=== PATIENT | female | born 1970 | race Caucasian/White ===

== ENCOUNTER 2019-03-12 17:37 | Observation (INO) ==
[2019-03-12] MEDS ORDERED: MoRPHine SULFATE 4 MG/ML 1 ML CARP\\VIAL IV STA (17:51)
[2019-03-12 18:25] LABS: Prothrombin Time 10.6 Seconds (9.0-12.0)
[2019-03-12 18:35] LABS: Alanine Aminotransferase 23 U/L (12-78); Albumin Level 3.5 gm/dl (3.4-5.0); Aspartate Aminotransferase 25 U/L (15-37); BUN Creatinine Ratio 9.7 (10-20); Blood Urea Nitrogen 7 mg/dl (7-18); Calcium 9.4 mg/dl (8.5-10.1); Carbon Dioxide 26 mmol/L (21-32); Chloride 106 mmol/L (98-107); Creatinine Clr Calc Pharmacy 99.3 ml/min; Est GFR (African American) 118.5; Est GFR (Non-African American) 102.2; Glucose 75 mg/dl (70-99); Potassium 3.4 mmol/L (3.5-5.1); Sodium 140 mmol/L (136-145)
--- NOTE | 2019-03-12 18:36 | XRay Report ---
XR chest 1V portable CLINICAL HISTORY: Atypical chest pain COMPARISON STUDY: No previous studies for comparison. FINDINGS: The cardiac and mediastinal contours are normal. There is no evidence of focal pulmonary co nsolidation. There is no evidence of failure. No pleural effusions are visualized.[There is an equivo elba tiny hiatal hernia versus left medial basilar atelectasis/scarring. No pneumothorax is visualized . IMPRESSION: No active disease in the chest. Electronically signed by: Vin Silverman M.D. 03/12/2019 6:35 PM
[2019-03-12 18:39] LABS: Albumin Globulin Ratio 0.8 (0.9-2); Alkaline Phosphatase 125 U/L (45-117); Bilirubin,Total 0.4 mg/dl (0.2-1); Globulin 4.4 gm/dl (2.5-4.0); Total Protein 7.9 gm/dl (6.4-8.2); Troponin I < 0.015 ng/ml (0-0.045)
[2019-03-12 18:40] LABS: Anisocytosis Present; Basophils # (auto) 0.06 K/uL (0-0.2); Basophils % (auto) 0.8 %; Eosinophils # (auto) 0.29 K/uL (0-0.5); Eosinophils % (auto) 3.8 %; Hematocrit (blood only) 30.5 % (37-47); Hemoglobin 8.8 g/dL (12.0-16.0); Hypochromasia Present; Immature Granulocytes # (auto) 0.01 K/uL (0.00-0.02); Immature Granulocytes % (auto) 0.1 %; Lymphocytes % (auto) 47.4 %; Mean Corpuscular Hgb Conc 28.9 g/dL (32-36); Mean Corpuscular Volume 66.3 fL (80-100); Microcytosis Present; Monocytes # (auto) 0.48 K/uL (0.11-0.59); Monocytes % (auto) 6.3 %; Neutrophils # (auto) 3.16 K/uL (1.4-6.5); Neutrophils % (auto) 41.6 %; Platelet Count 189 K/uL (130-400); RDW Coefficient of Variation 20.6 % (11.5-14.5); RDW Standard Deviation 49.1 fL (36.4-46.3); Schistocytes Occasional
[2019-03-12] MEDS ORDERED: OPTIRAY 320 125ml IV PRN (19:07)
--- NOTE | 2019-03-12 19:28 | CT Scan Report ---
CT OF THE CHEST WITH IV CONTRAST CLINICAL HISTORY: CP, jaw pain, back pain COMPARISON STUDY: No previous studies for comparison. TECHNIQUE: Initially noncontrast images were obtained through the chest. Following the IV administrat ion of 119 mL of Optiray-320, CT of the thorax was performed from the thoracic inlet to the lung base s. Images are reviewed in the axial, sagittal, and coronal planes. IV contrast was administered witho ut complication. A dose lowering technique was utilized adhering to the principles of ALARA. MIP zabrina ges were acquired. CT DOSE: 725.73 mGy.cm FINDINGS: Thyroid: Imaged portions of the thyroid gland are normal in appearance. Thoracic aorta: Noncontrast images reveal no evidence of acute thoracic aorta hematoma. There is no e vidence of thoracic aortic aneurysm or dissection. Pulmonary vasculature: The pulmonary trunk is norm al in caliber. There are no central filling defects identified to suggest pulmonary embolus. Note allyson t this examination was not protocoled for the evaluation of pulmonary emboli. HEART: The heart is normal in size and configuration, without pericardial effusion. Lungs and pleural spaces: There are no pleural effusions. There is no pneumothorax. There is no focal pulmonary consolidation. There are a few scattered tiny micronodules. Mediastinum: There is no mediastinal lymphadenopathy. Blanca: There is no evidence of pathologic hilar lymphadenopathy Axilla: There is no evidence of pathologic axillary lymphadenopathy Upper abdomen: There is a hiatal hernia. There are surgical changes involving the stomach. Skeletal structures: There are degenerative changes present within the spine with calcified disc prot rusions at the T8-9 and T6-7 levels IMPRESSION: 1. No evidence of thoracic aortic aneurysm or dissection 2. No evidence of pulmonary embolism 3. No evidence of focal pulmonary consolidation Electronically signed by: Vin Silverman M.D. 03/12/2019 7:27 PM
[2019-03-12] MEDS ORDERED: NITROGLYCERIN SL 0.4 MG/TAB TAB SL STA (20:02)
[2019-03-12] MEDS ORDERED: NITROGLYCERIN 2% OINTMENT 30GM TUBE EXT STA (21:49)
--- NOTE | 2019-03-12 22:19 | History & Physical Report ---
Date of Service March 12, 2019 Assessment & Plan (1) Chest pain: 49-year-old female was admitted on 12 March 2019 for chest pain. Chest pain: Acute onset late afternoon of admission, similar to remote anginal symptoms. Resolved with nitroglycerin and morphine, then began to return. - On arrival to ED, afebrile, not tachycardic, BP 145/88, normal room SpO2. TnI at 1751 was negative. EKG NSR with T wave inversion in III and PVCs. CTA chest no evidence of PE or consolidation. - In ED, treated with morphine and nitroglycerin with interval resolution of pain, but is beginning to return. - We will place on nitroglycerin paste and morphine as needed. Serial EKGs and troponins overnight. Consulted cardiology for evaluation tomorrow. Anemia: Admit Hb 8.8, MCV 66. Patient notes history of same, unknown cause, but gives herself weekly iron injections (last dose 24Jun). Recheck CBC in the morning. Hypokalemia: Admit K 3.4. Will provide p.o. replacement, recheck in a.m. Ongoing medical issues (all per patient's account): - Congestive heart failure, hyperlipidemia: Unclear details of severity or type. At home with on aspirin, diltiazem, metoprolol, Crestor, and Imdur. Continue here. -Atrial fibrillation: At home as on apixaban. Continue here. - Bipolar, anxiety/depression: At home is on bupropion, Lexapro, buspirone. Continue here. - Lupus: Last flare around August 2018. - CVA: Apparently first episode in 2013 without symptoms. Second 2018 with left-sided weakness and aphasia. Nearly totally resolved after speech and physical therapy. - Hypothyroidism: At home is on Synthroid. Continue here. - Insomnia: At home is on mirtazapine. Continue here. - Reported history of diabetes: Apparently off of insulin for past 9 months since gastric sleeve surgery in September 2017. Is on pantoprazole. Code status: Full code. Diet: Heart healthy. DVT prophy: On eliquis. PT/OT: Deferred. Disbo[facility] (2) Anemia: (3) Hypokalemia: (4) Congestive heart failure: (5) Hyperlipidemia: (6) Atrial fibrillation: (7) Bipolar disorder: (8) Anxiety: (9) Depression: (10) Lupus: (11) History of CVA (cerebrovascular accident): (12) Hypothyroidism: (13) Insomnia: History of Present Illness Primary Care Provider: NO PCP 49-year-old female arrives via EMS for chest pain. She states around 5 PM [facility] she had the acute onset of nausea, vomiting x2, and a central "clenching" chest pain that radiated towards her jaw and into her upper back. She called 911 and gave herself 3 nitroglycerin which improved her pain from a 10/10 to a 7/10. By EMS, she was given aspirin and on arrival was given further nitroglycerin and morphine. Only noted prodromal symptom was a feeling of decreased energy over the past 3 days. At present during this interview, patient says that it feels like her chest pain is beginning to return. She says the last time this happened was about 7 months ago and at that time Nitropaste seem to help more. She notes a history of angina for the past approximately 1.5 years and says that this pain feels similar to that. She is followed by cardiology back home in [place]. She pres ently feels what appears to be PVCs on the monitor. She says she has some mild shortness of breath initially but denies any at present. She says she is quite hungry and is enjoying the sandwich she got in the ED. No longer any nausea. As background, patient states she has a history of angina as described above. No known source. Says she underwent a chemical stress test and catheterization in the summer 2017 and was noted to have minimal blockage. She also says she has a history of congestive heart failure, has had echocardiograms, but is unsure of the results. Furthermore, notes history of A. fib well controlled on medication as well as on apixaban. Status post CVA in 2013 without noted deficits but then a second CVA in 2018 with some left-sided weakness and mild aphasia, since greatly resolved. Diagnosed with lupus last year. Concurrent anxiety and depression. Hypothyroidism. Says she underwent a gastric sleeve surgery in September 2017, has since had 120 pound weight loss, and is off of insulin/metformin. She notes a history of anemia, no known source, but gives herself shots of iron weekly (last dose 24Jun). She is presently in [place] visiting her at [facility] and was on track to take a bus to [place], then return to [place] this coming Friday. Allergies Allergy/AdvReac Type Severity Reaction Status Date / Time Penicillins Allergy Severe THROAT Verified 03/12/19 18:05 CLOSES, HIVES adhesive Allergy Intermediate SKIN Verified 03/12/19 18:05 BLISTERS Home Medications Home Medications Medication Instructions Recorded Confirmed Type apixaban [Eliquis] 5 mg PO BID 03/12/19 03/12/19 History aspirin [Aspir-81] 81 mg PO QAM 03/12/19 03/12/19 History bupropion HCl 75 mg PO BID 03/12/19 03/12/19 History buspirone 15 mg PO BID 03/12/19 03/12/19 History diltiazem HCl [Cardizem] 120 mg PO BID 03/12/19 03/12/19 History escitalopram oxalate [Lexapro] 20 mg PO QAM 03/12/19 03/12/19 History hydromorphone [Dilaudid] 4 mg PO DIRECTED PRN 03/12/19 03/12/19 History isosorbide mononitrate 30 mg PO BID 03/12/19 03/12/19 History levothyroxine 137 mcg PO DAILYBB 03/12/19 03/12/19 History metoprolol tartrate 25 mg PO BID 03/12/19 03/12/19 History mirtazapine 45 mg PO HS 03/12/19 03/12/19 History nitroglycerin [Nitrostat] 0.4 mg SUBLINGUAL DIRECTED PRN 03/12/19 03/12/19 History pantoprazole 40 mg PO BID 03/12/19 03/12/19 History rosuvastatin [Crestor] 20 mg PO HS 03/12/19 03/12/19 History Past Med/Surg History Medical History CHF (congestive heart failure) CVA (cerebral vascular accident) Lupus Social History Preferred Language: [employer] Required: No Beliefs That Will Affect Care: None Current Living Situation: Alone Other Information That Helps Us Care for You: No Feels Safe at Home: Yes Safety Concerns: Feels Safe At This Time Smoking Status: Former smoker Do You Dip or Chew Tobacco: No Second Hand Exposure: No Tobacco Cessation Education Requested by Patient: No Hx Alcohol Use: No Hx Substance Use: No Review of Systems Review of Systems: Constitutional: Denies fevers, chills, focal weakness Eyes: Denies any visual loss or diplopia ENT: Denies any ear/nose/throat pain or difficulty speaking or swallowing Respiratory: Denies any dyspnea, cough, hemoptysis Cardiovascular: Positive chest pain. Denies edema. Gastrointestinal: Denies any abdominal pain. Positive nausea vomiting, denies diarrhea. Musculoskeletal: Denies any acute extremity pains, myalgias, or focal weakness Skin: Denies any known acute rashes or lesions Neuro: Denies any headache, acute focal weakness or numbness, or difficulties with speech or swallow. Psych: Denies any recent exacerbation of depression or anxiety Physical Exam Physical Exam: GENERAL: Awake, alert, well-appearing, in no acute distress. Eating a sandwich. HENT: Normocephalic, atraumatic. Oropharynx unremarkable. EYES: Normal conjunctiva. Sclera non-icteric. NECK: Inspection normal. Non-tender. Supple and full ROM. No nuchal rigidity. CARDIAC: +S1S2 RRR with occasional PVCs on monitor, no murmurs. RESPIRATORY: Clear to auscultation. No wheezes or rales. Normal respiratory effort. GI: +BS, soft, non-distended. No tenderness to palpation. No rebound or guarding. EXTREMITIES: No pedal edema or calf tenderness. Moving all extremities naturally and easily. Small abrasion to her right patella. NEURO: No gross neuro deficits. Results & Data Vital Signs (Past 12 Hours) Vital Signs Temp Pulse Pulse Resp BP BP Pulse Ox 03/12/19 21:42 18 03/12/19 21:31 78 23 125/81 100 03/12/19 21:30 75 18 85 L 03/12/19 21:20 79 19 93 03/12/19 21:10 76 17 100 03/12/19 21:01 79 20 99 03/12/19 21:00 75 15 127/83 03/12/19 20:50 78 19 03/12/19 20:40 78 18 03/12/19 20:30 75 18 130/97 100 03/12/19 20:20 87 19 100 03/12/19 20:10 85 20 03/12/19 20:01 74 26 H 112/97 100 03/12/19 20:00 71 25 H 03/12/19 19:59 73 24 145/88 H 100 03/12/19 19:58 71 15 145/88 H 100 03/12/19 19:50 73 23 100 03/12/19 19:40 78 18 93 03/12/19 19:31 81 21 100 03/12/19 19:30 79 22 111/87 100 03/12/19 19:21 75 20 118/65 98 03/12/19 19:20 82 24 98 03/12/19 19:17 99 H 19 03/12/19 18:50 86 25 H 97 03/12/19 18:40 88 20 98 03/12/19 18:30 78 24 100 03/12/19 18:20 81 18 100 03/12/19 18:10 82 18 100 03/12/19 18:03 90 13 99 03/12/19 17:50 85 26 H 97 03/12/19 17:47 86 21 100 03/12/19 17:45 36.9 C 88 17 93 Laboratory Results 03/12/19 03/12/19 03/12/19 Range/Units 17:51 17:51 17:51 WBC 7.60 (4.8-10.8) K/uL RBC 4.60 (4.2-5.4) M/uL Hgb 8.8 L (12.0-16.0) g/dL Hct 30.5 L (37-47) % MCV 66.3 L (80-100) fL MCH 19.1 L (25-34) pg MCHC 28.9 L (32-36) g/dL RDW Std Deviation 49.1 H (36.4-46.3) fL RDW Coeff of Bebo 20.6 H (11.5-14.5) % Plt Count 189 (130-400) K/uL Immature Gran % (Auto) 0.1 % Neut % (Auto) 41.6 % Lymph % (Auto) 47.4 % [place] % (Auto) 6.3 % Eos % (Auto) 3.8 % Baso % (Auto) 0.8 % Immature Gran # (Auto) 0.01 (0.00-0.02) K/uL Neut # (Auto) 3.16 (1.4-6.5) K/uL Lymph # (Auto) 3.60 H (1.2-3.4) K/uL [place] # (Auto) 0.48 (0.11-0.59) K/uL Eos # (Auto) 0.29 (0-0.5) K/uL Baso # (Auto) 0.06 (0-0.2) K/uL Hypochromasia Present Anisocytosis Present Microcytosis Present Schistocytes Occasional PT 10.6 (9.0-12.0) Seconds INR 1.0 (0.9-1.1) Sodium 140 (136-145) mmol/L Potassium 3.4 L (3.5-5.1) mmol/L Chloride 106 (98-107) mmol/L Carbon Dioxide 26 (21-32) mmol/L Anion Gap 8.0 (3-11) BUN 7 (7-18) mg/dl Creatinine 0.69 (0.6-1.2) mg/dl Est Cr Clr Drug Dosing 99.3 ml/min Est GFR ( Amer) 118.5 Est GFR (Non-Af Amer) 102.2 BUN/Creatinine Ratio 9.7 L (10-20) Glucose 75 (70-99) mg/dl Calcium 9.4 (8.5-10.1) mg/dl Total Bilirubin 0.4 (0.2-1) mg/dl AST 25 (15-37) U/L ALT 23 (12-78) U/L Alkaline Phosphatase 125 H (45-117) U/L Troponin I < 0.015 (0-0.045) ng/ml Total Protein 7.9 (6.4-8.2) gm/dl Albumin 3.5 (3.4-5.0) gm/dl Globulin 4.4 H (2.5-4.0) gm/dl Albumin/Globulin Ratio 0.8 L (0.9-2) Lipase 176 (73-393) U/L Medications Administered Ioversol (Optiray 320 125ml) 119 ml IV ONCE PRN PRN Reason: Interaction Checking Stop: 03/16/19 19:06 Last Admin: 03/12/19 19:08 Dose: 119 ml Documented by: [id number] Discontinued Medications Morphine Sulfate (Morphine Sulfate) 4 mg IV NOW STA Stop: 03/12/19 17:52 Last Admin: 03/12/19 18:16 Dose: 4 mg Documented by: [id number] Nitroglycerin (Nitrostat) 0.4 mg SL NOW STA Stop: 03/12/19 20:03 Last Admin: 03/12/19 20:50 Dose: 0.4 mg Documented by: [id number] Nitroglycerin (Nitro-Bid 2%) 0.5 inch EXT NOW STA Stop: 03/12/19 21:50 Last Admin: 03/12/19 22:08 Dose: 0.5 inch Documented by: [id number] Code Status & VTE Plan Code Status Full code VTE Prophylaxis Plan VTE Prophylaxis will be ordered: Yes Supervising Physician Co-Signing Physician Notes Attending addendum: I have physically seen this patient, have supervised the medical residents activities, and agree with the H&P unless as otherwise noted. Assessment and Plan: Chest pain/acute fibrillation/CAD/angina/CHF-- The patient will be admitted to telemetry for serial cardiac enzymes, serial EKG's, cardiac rhythm monitoring and a 2-D echocardiogram with Dopplers. Continue apixaban, aspirin, diltiazem, isosorbide mononitrate and metoprolol with hold parameters. Nitropaste added. Reportedly underwent catheterization August 2018 which was relatively normal. Question possibility of coronary artery vasospasm. Consult cardiology. Anxiety-continue bupropion, buspirone, Lexapro and mirtazapine. Remainder of orders and notations as noted. PG Care Time/CCT Total # of Minutes Spent Total Time Spent with Patient: Total time spent is greater than 50% in coordination of care (as documented) at patient's floor/unit and/or counseling patient: Resident Activity Tracking Resident Involvement: Resident Care Provided Care Provided: Adult Hospital Medicine (1) Chest pain Chest pain type: unspecified Qualified Code(s): R07.9 - Chest pain, unspecified
[2019-03-12] MEDS ORDERED: ACETAMINOPHEN 325 MG TAB PO PRN (22:43)
[2019-03-12] MEDS ORDERED: ONDANSETRON INJ 2 MG/ML 2 ML VIAL IV PRN (22:43)
[2019-03-12] MEDS ORDERED: POTASSIUM CHLORIDE 20 MEQ TABCR PO ONE (22:43)
[2019-03-12] MEDS ORDERED: NITROGLYCERIN SL 0.4 MG/TAB TAB SL PRN (22:43)
[2019-03-12] MEDS: MoRPHine SULFATE 4 MG/ML 1 ML CARP\\VIAL IV PRN (23:05)
--- NOTE | 2019-03-12 23:56 | Emergency Department Note ---
Entered by Jovanna Bingham acting as a scribe for History of Present Illness General Chief complaint: Chest Pain Source: patient History of Present Illness Provider complaint: chest pain Onset (ago): minute(s) 30 Location: chest Radiation: back (upper) and other (jaw) Severity: similar to prior episodes (of angina) Pain Consistency: + other (episode) Relieved By: + medication (Nitroglycerin) The patient is a 49 year old female who presents to the ED with complaints of an episode of chest pain that began 30 minutes ago. That patient states that the pain started while she was waiting for the bus. The patient states that her pain radiates into her jaw and upper back. The patient says that the pain made her feel dizzy and nauseas which caused her to vomit twice prior to arrival. The patient notes that she took 3 doses of Nitroglycerin 5 minutes apart which took her pain from a 10/10 to a 7/10. The patient notes that she a history of CHF, Afib and angina. The patient states that this pain feels similar to her angina. Home Medications Home Medications Medication Instructions Recorded Confirmed Type apixaban [Eliquis] 5 mg PO BID 03/12/19 03/12/19 History aspirin [Aspir-81] 81 mg PO QAM 03/12/19 03/12/19 History bupropion HCl 75 mg PO BID 03/12/19 03/12/19 History buspirone 15 mg PO BID 03/12/19 03/12/19 History diltiazem HCl [Cardizem] 120 mg PO BID 03/12/19 03/12/19 History escitalopram oxalate [Lexapro] 20 mg PO QAM 03/12/19 03/12/19 History hydromorphone [Dilaudid] 4 mg PO DIRECTED PRN 03/12/19 03/12/19 History isosorbide mononitrate 30 mg PO BID 03/12/19 03/12/19 History levothyroxine 137 mcg PO DAILYBB 03/12/19 03/12/19 History metoprolol tartrate 25 mg PO BID 03/12/19 03/12/19 History mirtazapine 45 mg PO HS 03/12/19 03/12/19 History nitroglycerin [Nitrostat] 0.4 mg SUBLINGUAL DIRECTED PRN 03/12/19 03/12/19 History pantoprazole 40 mg PO BID 03/12/19 03/12/19 History rosuvastatin [Crestor] 20 mg PO HS 03/12/19 03/12/19 History Allergies Allergy/AdvReac Type Severity Reaction Status Date / Time Penicillins Allergy Severe THROAT Verified 03/12/19 18:05 CLOSES, HIVES adhesive Allergy Intermediate SKIN Verified 03/12/19 18:05 BLISTERS Past Med/Surg History Medical History CHF (congestive heart failure) CVA (cerebral vascular accident) Lupus Social History Preferred Language: Finnish Appeals And Generalist Clerk Required: No Beliefs That Will Affect Care: None Current Living Situation: Alone Other Information That Helps Us Care for You: No Feels Safe at Home: Yes Safety Concerns: Feels Safe At This Time Smoking Status: Former smoker Do You Dip or Chew Tobacco: No Second Hand Exposure: No Tobacco Cessation Education Requested by Patient: No Hx Alcohol Use: No Hx Substance Use: No Review of Systems See HPI for pertinent positives & negatives. and A total of 10 systems reviewed and were otherwise negative Physical Exam Vital Signs Vital Signs - 24 hr 03/12/19 17:45 03/12/19 17:47 03/12/19 17:50 Temperature 36.9 C Temperature Source Oral Sepsis Recent Fever Within 48 Hours No Sepsis Action Taken by Nursing No Action Required Pulse Rate 88 86 85 Pulse Rate [Apical] Pulse Rate from SpO2 Sensor 74 79 Pulse Rhythm Irregular Pulse Strength Normal Respiratory Rate 17 21 26 H Respiratory Effort / Characteristics Non-Labored Respiratory Depth Normal Respiratory Pattern Regular Blood Pressure Blood Pressure [Right Arm] Blood Pressure Mean Blood Pressure Mean [Right Arm] Blood Pressure Position Lying Blood Pressure Position [Right Arm] Pulse Oximetry 93 100 97 Oxygen Delivery Method Room Air 03/12/19 18:03 03/12/19 18:10 03/12/19 18:20 Temperature Temperature Source Sepsis Recent Fever Within 48 Hours Sepsis Action Taken by Nursing Pulse Rate 90 82 81 Pulse Rate [Apical] Pulse Rate from SpO2 Sensor 83 82 81 Pulse Rhythm Pulse Strength Respiratory Rate 13 18 18 Respiratory Effort / Characteristics Respiratory Depth Respiratory Pattern Blood Pressure Blood Pressure [Right Arm] Blood Pressure Mean Blood Pressure Mean [Right Arm] Blood Pressure Position Blood Pressure Position [Right Arm] Pulse Oximetry 99 100 100 Oxygen Delivery Method 03/12/19 18:30 03/12/19 18:40 03/12/19 18:50 Temperature Temperature Source Sepsis Recent Fever Within 48 Hours Sepsis Action Taken by Nursing Pulse Rate 78 88 86 Pulse Rate [Apical] Pulse Rate from SpO2 Sensor 70 79 84 Pulse Rhythm Pulse Strength Respiratory Rate 24 20 25 H Respiratory Effort / Characteristics Respiratory Depth Respiratory Pattern Blood Pressure Blood Pressure [Right Arm] Blood Pressure Mean Blood Pressure Mean [Right Arm] Blood Pressure Position Blood Pressure Position [Right Arm] Pulse Oximetry 100 98 97 Oxygen Delivery Method 03/12/19 19:17 03/12/19 19:20 03/12/19 19:21 Temperature Temperature Source Sepsis Recent Fever Within 48 Hours Sepsis Action Taken by Nursing Pulse Rate 99 H 82 75 Pulse Rate [Apical] Pulse Rate from SpO2 Sensor 82 79 Pulse Rhythm Pulse Strength Respiratory Rate 19 24 20 Respiratory Effort / Characteristics Respiratory Depth Respiratory Pattern Blood Pressure 118/65 Blood Pressure [Right Arm] Blood Pressure Mean 82 Blood Pressure Mean [Right Arm] Blood Pressure Position Blood Pressure Position [Right Arm] Pulse Oximetry 98 98 Oxygen Delivery Method 03/12/19 19:30 03/12/19 19:31 03/12/19 19:40 Temperature Temperature Source Sepsis Recent Fever Within 48 Hours Sepsis Action Taken by Nursing Pulse Rate 79 81 78 Pulse Rate [Apical] Pulse Rate from SpO2 Sensor 77 82 74 Pulse Rhythm Pulse Strength Respiratory Rate 22 21 18 Respiratory Effort / Characteristics Respiratory Depth Respiratory Pattern Blood Pressure 111/87 Blood Pressure [Right Arm] Blood Pressure Mean 95 Blood Pressure Mean [Right Arm] Blood Pressure Position Blood Pressure Position [Right Arm] Pulse Oximetry 100 100 93 Oxygen Delivery Method 03/12/19 19:50 03/12/19 19:58 03/12/19 19:59 Temperature Temperature Source Sepsis Recent Fever Within 48 Hours Sepsis Action Taken by Nursing Pulse Rate 73 73 Pulse Rate [Apical] 71 Pulse Rate from SpO2 Sensor 70 71 Pulse Rhythm Pulse Strength Respiratory Rate 23 15 24 Respiratory Effort / Characteristics Respiratory Depth Respiratory Pattern Blood Pressure 145/88 H Blood Pressure [Right Arm] 145/88 H Blood Pressure Mean 107 Blood Pressure Mean [Right Arm] 107 Blood Pressure Position Blood Pressure Position [Right Arm] Lying Pulse Oximetry 100 100 100 Oxygen Delivery Method Room Air 03/12/19 20:00 03/12/19 20:01 03/12/19 20:10 Temperature Temperature Source Sepsis Recent Fever Within 48 Hours Sepsis Action Taken by Nursing Pulse Rate 71 74 85 Pulse Rate [Apical] Pulse Rate from SpO2 Sensor 73 Pulse Rhythm Pulse Strength Respiratory Rate 25 H 26 H 20 Respiratory Effort / Characteristics Respiratory Depth Respiratory Pattern Blood Pressure 112/97 Blood Pressure [Right Arm] Blood Pressure Mean 102 Blood Pressure Mean [Right Arm] Blood Pressure Position Blood Pressure Position [Right Arm] Pulse Oximetry 100 Oxygen Delivery Method 03/12/19 20:20 03/12/19 20:30 03/12/19 20:40 Temperature Temperature Source Sepsis Recent Fever Within 48 Hours Sepsis Action Taken by Nursing Pulse Rate 87 75 78 Pulse Rate [Apical] Pulse Rate from SpO2 Sensor 63 64 Pulse Rhythm Pulse Strength Respiratory Rate 19 18 18 Respiratory Effort / Characteristics Respiratory Depth Respiratory Pattern Blood Pressure 130/97 Blood Pressure [Right Arm] Blood Pressure Mean 108 Blood Pressure Mean [Right Arm] Blood Pressure Position Blood Pressure Position [Right Arm] Pulse Oximetry 100 100 Oxygen Delivery Method 03/12/19 20:50 03/12/19 21:00 03/12/19 21:01 Temperature Temperature Source Sepsis Recent Fever Within 48 Hours Sepsis Action Taken by Nursing Pulse Rate 78 75 79 Pulse Rate [Apical] Pulse Rate from SpO2 Sensor 71 Pulse Rhythm Pulse Strength Respiratory Rate 19 15 20 Respiratory Effort / Characteristics Respiratory Depth Respiratory Pattern Blood Pressure 127/83 Blood Pressure [Right Arm] Blood Pressure Mean 97 Blood Pressure Mean [Right Arm] Blood Pressure Position Blood Pressure Position [Right Arm] Pulse Oximetry 99 Oxygen Delivery Method 03/12/19 21:10 03/12/19 21:20 03/12/19 21:30 Temperature Temperature Source Sepsis Recent Fever Within 48 Hours Sepsis Action Taken by Nursing Pulse Rate 76 79 75 Pulse Rate [Apical] Pulse Rate from SpO2 Sensor 71 81 67 Pulse Rhythm Pulse Strength Respiratory Rate 17 19 18 Respiratory Effort / Characteristics Respiratory Depth Respiratory Pattern Blood Pressure Blood Pressure [Right Arm] Blood Pressure Mean Blood Pressure Mean [Right Arm] Blood Pressure Position Blood Pressure Position [Right Arm] Pulse Oximetry 100 93 85 L Oxygen Delivery Method 03/12/19 21:31 03/12/19 21:42 03/12/19 21:50 Temperature Temperature Source Sepsis Recent Fever Within 48 Hours Sepsis Action Taken by Nursing Pulse Rate 78 76 Pulse Rate [Apical] Pulse Rate from SpO2 Sensor 74 70 Pulse Rhythm Pulse Strength Respiratory Rate 23 18 16 Respiratory Effort / Characteristics Respiratory Depth Respiratory Pattern Blood Pressure 125/81 Blood Pressure [Right Arm] Blood Pressure Mean 95 Blood Pressure Mean [Right Arm] Blood Pressure Position Blood Pressure Position [Right Arm] Pulse Oximetry 100 100 Oxygen Delivery Method 03/12/19 22:00 Temperature Temperature Source Sepsis Recent Fever Within 48 Hours Sepsis Action Taken by Nursing Pulse Rate 75 Pulse Rate [Apical] Pulse Rate from SpO2 Sensor 71 Pulse Rhythm Pulse Strength Respiratory Rate 16 Respiratory Effort / Characteristics Respiratory Depth Respiratory Pattern Blood Pressure Blood Pressure [Right Arm] Blood Pressure Mean Blood Pressure Mean [Right Arm] Blood Pressure Position Blood Pressure Position [Right Arm] Pulse Oximetry 100 Oxygen Delivery Method GENERAL: Awake, alert, well-appearing, in no distress HENT: Normocephalic, atraumatic. EYES: Normal conjunctiva. Sclera non-icteric. NECK: Supple. No nuchal rigidity. RESPIRATORY: Clear to auscultation. No wheezes. Normal respiratory effort. CARDIAC: Normal rate. Normal rhythm. Extremities warm and well perfused. GI: Soft, non-distended. No tenderness to palpation. No rebound or guarding. No masses. RECTAL: Deferred. MUSCULOSKELETAL: Atraumatic. Chest examination reveals no tenderness. LOWER EXTREMITIES: Calves are equal size bilaterally and non-tender. No edema. Right lower extremity is in a boot. NEURO: Normal sensorium. No sensory or motor deficits noted. No facial droop. SKIN: Warm and dry. No rash or jaundice noted. Course 174: Past medical records reviewed. The patient was evaluated in room B12. A complete history and physical exam was performed. 2004: [facility] He will evaluate the patient for further management. Consultations Consultation #1: I discussed the patient's case with Dr. Phoenix [facility] Hospitalist. He will evaluate the patient for further management. Time: 20:04 Administered Medications Morphine Sulfate (Morphine Sulfate) 4 mg IV Q2H PRN PRN Reason: Chest Pain Stop: 03/26/19 22:42 Last Admin: 03/12/19 23:05 Dose: 4 mg Documented by: [id number] Discontinued Medications Ioversol (Optiray 320 125ml) 119 ml IV ONCE PRN PRN Reason: Interaction Checking Stop: 03/16/19 19:06 Last Admin: 03/12/19 19:08 Dose: 119 ml Documented by: [id number] Morphine Sulfate (Morphine Sulfate) 4 mg IV NOW STA Stop: 03/12/19 17:52 Last Admin: 03/12/19 18:16 Dose: 4 mg Documented by: [id number] Nitroglycerin (Nitrostat) 0.4 mg SL NOW STA Stop: 03/12/19 20:03 Last Admin: 03/12/19 20:50 Dose: 0.4 mg Documented by: [id number] Nitroglycerin (Nitro-Bid 2%) 0.5 inch EXT NOW STA Stop: 03/12/19 21:50 Last Admin: 03/12/19 22:08 Dose: 0.5 inch Documented by: [id number] Medical Decision Making Differential Diagnosis Differential diagnosis: Etiologies such as shingles, musculoskeletal pain, pericarditis, myocarditis, cardiac ischemia, pericardial tamponade, pneumonia, pneumothorax, pleural effusion, hemothorax, pleurisy, aortic pathology, pulmonary embolism, intra- abdominal process, as well as others were considered. Medical Records Attestation: I reviewed the patient's medical records. Home Medications Current Medication List: was personally reviewed by me Laboratory Data Attestation: I reviewed the patient's lab results. Result diagrams: 03/12/19 17:51 03/12/19 17:51 Lab Results 03/12/19 03/12/19 03/12/19 Range/Units 17:51 17:51 17:51 WBC 7.60 (4.8-10.8) K/uL RBC 4.60 (4.2-5.4) M/uL Hgb 8.8 L (12.0-16.0) g/dL Hct 30.5 L (37-47) % MCV 66.3 L (80-100) fL MCH 19.1 L (25-34) pg MCHC 28.9 L (32-36) g/dL RDW Std Deviation 49.1 H (36.4-46.3) fL RDW Coeff of Bebo 20.6 H (11.5-14.5) % Plt Count 189 (130-400) K/uL Immature Gran % (Auto) 0.1 % Neut % (Auto) 41.6 % Lymph % (Auto) 47.4 % Mcnairy % (Auto) 6.3 % Eos % (Auto) 3.8 % Baso % (Auto) 0.8 % Immature Gran # (Auto) 0.01 (0.00-0.02) K/uL Neut # (Auto) 3.16 (1.4-6.5) K/uL Lymph # (Auto) 3.60 H (1.2-3.4) K/uL Mcnairy # (Auto) 0.48 (0.11-0.59) K/uL Eos # (Auto) 0.29 (0-0.5) K/uL Baso # (Auto) 0.06 (0-0.2) K/uL Hypochromasia Present Anisocytosis Present Microcytosis Present Schistocytes Occasional PT 10.6 (9.0-12.0) Seconds INR 1.0 (0.9-1.1) Sodium 140 (136-145) mmol/L Potassium 3.4 L (3.5-5.1) mmol/L Chloride 106 (98-107) mmol/L Carbon Dioxide 26 (21-32) mmol/L Anion Gap 8.0 (3-11) BUN 7 (7-18) mg/dl Creatinine 0.69 (0.6-1.2) mg/dl Est Cr Clr Drug Dosing 99.3 ml/min Est GFR ( Amer) 118.5 Est GFR (Non-Af Amer) 102.2 BUN/Creatinine Ratio 9.7 L (10-20) Glucose 75 (70-99) mg/dl Calcium 9.4 (8.5-10.1) mg/dl Total Bilirubin 0.4 (0.2-1) mg/dl AST 25 (15-37) U/L ALT 23 (12-78) U/L Alkaline Phosphatase 125 H (45-117) U/L Troponin I < 0.015 (0-0.045) ng/ml Total Protein 7.9 (6.4-8.2) gm/dl Albumin 3.5 (3.4-5.0) gm/dl Globulin 4.4 H (2.5-4.0) gm/dl Albumin/Globulin Ratio 0.8 L (0.9-2) Lipase 176 (73-393) U/L Imaging Data Radiologist's Impression: Radiology results as stated below per my review and the radiologist's interpretation: XR chest 1V portable CLINICAL HISTORY: Atypical chest pain COMPARISON STUDY: No previous studies for comparison. FINDINGS: The cardiac and mediastinal contours are normal. There is no evidence of focal pulmonary consolidation. There is no evidence of failure. No pleural effusions are visualized.[There is an equivocal tiny hiatal hernia versus left medial basilar atelectasis/scarring. No pneumothorax is visualized. IMPRESSION: No active disease in the chest. Electronically signed by: Vin Silverman M.D. 03/12/2019 6:[address] OF THE CHEST WITH IV CONTRAST CLINICAL HISTORY: CP, jaw pain, back pain COMPARISON STUDY: No previous studies for comparison. TECHNIQUE: Initially noncontrast images were obtained through the chest. Following the IV administration of 119 mL of Optiray-320, CT of the thorax was performed from the thoracic inlet to the lung bases. Images are reviewed in the axial, sagittal, and coronal planes. IV contrast was administered without complication. A dose lowering technique was utilized adhering to the principles of ALARA. MIP images were acquired. CT DOSE: 725.73 mGy.cm FINDINGS: Thyroid: Imaged portions of the thyroid gland are normal in appearance. Thoracic aorta: Noncontrast images reveal no evidence of acute thoracic aorta hematoma. There is no evidence of thoracic aortic aneurysm or dissection. Pulmonary vasculature: The pulmonary trunk is normal in caliber. There are no central filling defects identified to suggest pulmonary embolus. Note that this examination was not protocoled for the evaluation of pulmonary emboli. HEART: The heart is normal in size and configuration, without pericardial effusion. Lungs and pleural spaces: There are no pleural effusions. There is no pneumothorax. There is no focal pulmonary consolidation. There are a few scattered tiny micronodules. Mediastinum: There is no mediastinal lymphadenopathy. Blanca: There is no evidence of pathologic hilar lymphadenopathy Axilla: There is no evidence of pathologic axillary lymphadenopathy Upper abdomen: There is a hiatal hernia. There are surgical changes involving the stomach. Skeletal structures: There are degenerative changes present within the spine with calcified disc protrusions at the T8-9 and T6-7 levels IMPRESSION: 1. No evidence of thoracic aortic aneurysm or dissection 2. No evidence of pulmonary embolism 3. No evidence of focal pulmonary consolidation Electronically signed by: Vin Silverman M.D. 03/12/2019 7:27 PM ECG Data Attestation: I personally reviewed and interpreted this ECG as follows: Indication: chest pain Rate (beats per minute): 77 Rhythm: sinus rhythm Findings: + other (normal interval), + PVC and + T-wave inversion (lead 3); no ST elevation Blood Pressure Blood Pressure Findings: Elevated blood pressure Blood Pressure Disposition: further management by hospitalist NASRA Narrative Patient is a 49-year-old female presenting via EMS chest pain. States she is traveling was visiting family nearby and is on her way back to [place]. Has significant history of lupus, angina, heart failure, and 2 prior strokes who about 30 to 45 minutes prior to arrival at onset of 10 out of 10 pain in her chest currently rating to her left jaw and her upper back. Denies trauma or fever. Denies abdominal symptoms. Denies significant shortness of breath. Patient is on Eliquis and additionally has a history of atrial fibrillation maintained on Cardizem and metoprolol. Patient also on imdur. States compliant with home medications. Takes a baby aspirin received additional 324 aspirin prior to arrival. Took 3 nitros with some improvement of pain from 10 to 7/10. States he last had a cardiac catheterization and stress test about a year ago. Denies any leg swelling. Not significantly reproducible on exam. Patient received morphine here for symptomatic treatment. Lower suspicion for PE while anticoagulated. Given the distribution some concern for dissection and CT scan of the chest was completed. No acute ST segment changes on EKG. Basic labs were completed as well. No evidence of acute hepatitis or pancreatitis. Doubt this is pneumonia pneumothorax. CT scan was likely normal. Patient does have some cardiac risk factors and patient states the pain which improved after some morphine began to return about an hour later. Discussed with patient's options of delta troponin and discharge home versus observation stay and the patient felt uncomfortable going home. Given her cardiac history do believe observation status reasonable discussion with the patient and hospitalist was contacted for next up admission. Impression & Plan Chest pain Discharge Plan Visit Data *Final* Discharge Date/Time: 03/12/19 22:21 Chief Complaint: Chest Pain ED Provider: Lorenzo Keane Discharge Problem: Chest pain Patient Disposition: Admitted As Inpatient Discharge Instructions Interventions: ED Discharge Assessment Last Done: 03/12/19 22:21 Discharge Problem: Chest pain Qualifiers: Chest pain type: unspecified Qualified Code(s): R07.9 - Chest pain, unspecified The scribe's documentation has been prepared under my direction and personally reviewed by me in its entirety. I confirm that the note above accurately reflects all work, treatment, procedures, and medical decision making performed by me.
[2019-03-13] MEDS: dilTIAZem HCL 120 MG CAPCR PO SCH ×3 (00:08→21:40)
[2019-03-13] MEDS: BusPIRone 15 MG TAB PO SCH ×3 (00:08→21:40)
[2019-03-13] MEDS: ISOSORBIDE MONO EXTENDED REL 30 MG TABCR PO SCH ×3 (00:08→21:41)
[2019-03-13] MEDS: ROSUVASTATIN CALCIUM 20 MG TAB PO SCH ×2 (00:09→21:41)
[2019-03-13] MEDS: METOPROLOL TARTRATE 25 MG TAB PO SCH ×3 (00:09→21:41)
[2019-03-13] MEDS: buPROPion HCl 75 MG TABLET PO SCH ×4 (00:09→21:43)
[2019-03-13] MEDS: MIRTAZAPINE SOLTAB 15 MG PO SCH (00:09)
[2019-03-13] MEDS: PANTOprazole 40 MG TAB PO SCH ×3 (00:09→21:41)
[2019-03-13] MEDS: MoRPHine SULFATE 4 MG/ML 1 ML CARP\\VIAL IV PRN ×6 (03:59→21:48)
[2019-03-13] MEDS: LEVOTHYROXINE SODIUM 137 MCG TABLET PO SCH (05:42)
[2019-03-13 06:50] LABS: Hematocrit (blood only) 29.2 % (37-47); Hemoglobin 8.3 g/dL (12.0-16.0); Mean Corpuscular Hgb Conc 28.4 g/dL (32-36); Mean Corpuscular Volume 67.7 fL (80-100); Platelet Count 181 K/uL (130-400); RDW Coefficient of Variation 20.6 % (11.5-14.5); RDW Standard Deviation 50.9 fL (36.4-46.3); Red Blood Count 4.31 M/uL (4.2-5.4); White Blood Count 8.13 K/uL (4.8-10.8)
[2019-03-13 07:08] LABS: BUN Creatinine Ratio 11.3 (10-20); Blood Urea Nitrogen 7 mg/dl (7-18); Calcium 8.6 mg/dl (8.5-10.1); Carbon Dioxide 26 mmol/L (21-32); Chloride 108 mmol/L (98-107); Creatinine Clr Calc Pharmacy 106.3 ml/min; Est GFR (African American) 121.4; Est GFR (Non-African American) 104.8; Glucose 122 mg/dl (70-99); Potassium 3.8 mmol/L (3.5-5.1); Sodium 141 mmol/L (136-145)
[2019-03-13 07:13] LABS: Troponin I < 0.015 ng/ml (0-0.045)
[2019-03-13] MEDS ORDERED: ASPIRIN 81 MG ECTAB PO SCH (09:00)
[2019-03-13] MEDS ORDERED: APIXABAN 5 MG TABLET PO SCH (09:00)
[2019-03-13] MEDS: ESCITALOPRAM OXALATE 20 MG TAB PO SCH (09:10)
[2019-03-13 09:47] LABS: Ferritin 3.5 ng/ml (8-388)
--- NOTE | 2019-03-13 10:25 | Ultrasound Report ---
ULTRASOUND OF THE CAROTID ARTERIES CLINICAL HISTORY: Visual changes. Numbness and tingling. COMPARISON STUDY: No priors. TECHNIQUE: Real-time, grayscale, and color Doppler sonography of the carotid arteries is performed. I mages are reviewed in the transverse and longitudinal planes. FINDINGS: Blood pressures were not assessed due to the presence of IV catheters. The carotid arteries are patent bilaterally and demonstrate antegrade flow. There is no significant a therosclerotic plaque identified. Normal doppler arterial waveforms are seen throughout. Velocity katt surements are listed below. Common carotid peak systolic velocity (cm/sec): RIGHT: 75 LEFT: 71 ICA proximal peak systolic velocity (cm/sec): RIGHT: 65 LEFT: 61 ICA mid peak systolic velocity (cm/sec): RIGHT: 73 LEFT: 47 ICA distal peak systolic velocity (cm/sec): RIGHT: 64 LEFT: 44 ICA/CC peak systolic ratio: RIGHT: 1.0 LEFT: 0.9 Antegrade flow was shown in the vertebral arteries. The external carotid arteries are patent. IMPRESSION: 1. There is no sonographic evidence of hemodynamically significant stenosis in the right or left dickinson tid arterial system. 2. Antegrade flow is shown in the vertebral arteries. Electronically signed by: Clem Olvera M.D. 03/13/2019 10:24 AM
--- NOTE | 2019-03-13 11:49 | Cardiology Consultation ---
Date of Consultation March 13, 2019 Assessment & Plan (1) Chest pain: Given the severity of her chest pain with negative ECG and enzymes, suspect esophageal or gastric etiology rather than cardiac ischemia. Since she had negative catheterization 1 year ago and there is no evidence of ongoing myocardial ischemia, utility of stress testing would be low. Suspect she response to nitrates due to esophageal spasm, reasonable to continue these if they are therapeutic. No further ischemic workup planned in the absence of more specific evidence of myocardial ischemia. (2) History of atrial fibrillation: She is currently in sinus rhythm and monitored. Since there is a concern about GI bleeding, would recommend stopping both her aspirin and apixaban for now. Possibly, she could be discharged off the apixaban with instructions to restart if she suspects atrial fibrillation based on daily monitoring of her heart rate and rhythm via a phone bernard (instructed her use of Instant Heart Rate by [employer] on her [facility] phone). Whether to restart aspirin upon discharge is less clear, would be helpful to have records to see if her prior CVA was felt to be due to thromboembolic phenomenon, in which case the aspirin would not be necessary. (3) History of CHF (congestive heart failure): She appears euvolemic currently without the need for diuretics. Low-salt diet, obtain further records. No specific intervention necessary. (4) Anemia: Workup per primary team, suspicious for GI bleeding. As noted, anti- platelet and antithrombotic agents should be held in hospital, decision on restarting on discharge will depend upon GI workup. Since she has required transfusions in the past, the issue of long-term anticoagulation should be addressed by her primary care team in [place]. However, with heart rate monitoring, perhaps she could forego anticoagulation in the short term, until she returns to [place]. History of Present Illness Attending Physician: Richie Menjivar MD History of Present Illness 49-year-old woman visiting from [place] who was admitted 03/04/2019 with chest pain, had no ischemic changes on ECG and negative serial troponins, and gives a history of probable melena/hematochezia with hemoglobin today of 8.3. She did have moderate to severe central chest pain yesterday which responded to nitroglycerin and morphine, today she notes only mild left jaw discomfort at times. Her cardiac history apparently includes a catheterization last year which showed no significant stenoses, history of congestive heart failure but no need for routine diuretics, and history of atrial fibrillation for which she is on metopr olol and apixaban (sinus rhythm this admission). At the time of my evaluation this morning, the patient was comfortable in noted no chest discomfort, dyspnea, or lightheadedness. She does experience the ventricular ectopy as a sensation of palpitations, but this is longstanding and not a new symptom. Allergies Allergy/AdvReac Type Severity Reaction Status Date / Time Penicillins Allergy Severe THROAT Verified 03/12/19 18:05 CLOSES, HIVES adhesive Allergy Intermediate SKIN Verified 03/12/19 18:05 BLISTERS Home Medications Home Medications Medication Instructions Recorded Confirmed Type apixaban [Eliquis] 5 mg PO BID 03/12/19 03/12/19 History aspirin [Aspir-81] 81 mg PO QAM 03/12/19 03/12/19 History bupropion HCl 75 mg PO BID 03/12/19 03/12/19 History buspirone 15 mg PO BID 03/12/19 03/12/19 History diltiazem HCl [Cardizem] 120 mg PO BID 03/12/19 03/12/19 History escitalopram oxalate [Lexapro] 20 mg PO QAM 03/12/19 03/12/19 History hydromorphone [Dilaudid] 4 mg PO DIRECTED PRN 03/12/19 03/12/19 History isosorbide mononitrate 30 mg PO BID 03/12/19 03/12/19 History levothyroxine 137 mcg PO DAILYBB 03/12/19 03/12/19 History metoprolol tartrate 25 mg PO BID 03/12/19 03/12/19 History mirtazapine 45 mg PO HS 03/12/19 03/12/19 History nitroglycerin [Nitrostat] 0.4 mg SUBLINGUAL DIRECTED PRN 03/12/19 03/12/19 History pantoprazole 40 mg PO BID 03/12/19 03/12/19 History rosuvastatin [Crestor] 20 mg PO HS 03/12/19 03/12/19 History Patient History Medical History CHF (congestive heart failure) CVA (cerebral vascular accident) Lupus Social History 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 Beliefs That Will Affect Care: None Current Living Situation: Alone Other Information That Helps Us Care for You: No Feels Safe at Home: Yes Safety Concerns: Feels Safe At This Time Smoking Status: Former smoker Do You Dip or Chew Tobacco: No Second Hand Exposure: No Tobacco Cessation Education Requested by Patient: No Hx Alcohol Use: No Hx Substance Use: No Review of Systems Review of Systems: All systems reviewed & are unremarkable except as noted in HPI & below Constitutional: + fatigue; no fever and no chills Eyes: no problem reported Ear, Nose, Mouth, Throat: no problem reported Respiratory: + dyspnea on exertion; no cough Cardiovascular: + chest pain; no orthopnea, no syncope and no edema Gastrointestinal: + change in stools, + blood in stools and + melena Genitourinary: no difficulty urinating and no problem reported Musculoskeletal: no joint pain and no muscle weakness Integumentary: no rash and no new lesions Neurologic: no localized weakness and no behavioral changes Hematologic / Lymphatic: no easy bleeding and no easy bruising Physical Exam Physical Exam: No distress. Skin: No unusual lesions or ecchymosis. HEENT: Unremarkable. Neck: Jugular venous pulse at the clavicle at 90, no carotid bruits. Lungs: Clear and equal breath sounds bilaterally. No wheezing or crackles. Cardiac: Regular rhythm with sporadic ectopy, normal S1 and S2. No murmur or gallop. Abdomen: Benign. Extremities: Nontender without edema. Intact peripheral pulses. Neurologic: Normal affect, nonfocal Results & Data Vital Signs (Past 12 Hours) Vital Signs Temp Pulse Resp BP Pulse Ox 03/13/19 11:43 97.9 F 59 L 15 96/59 L 100 03/13/19 07:08 97.9 F 66 19 103/54 L 100 03/13/19 02:51 97.5 F L 68 16 92/45 L 98 Laboratory Results 03/12/19 03/12/19 03/13/19 17:51 17:51 00:13 Hgb 8.8 L BUN Creatinine Iron Troponin I < 0.015 < 0.015 03/13/19 03/13/19 03/13/19 05:57 05:57 09:08 Hgb 8.3 L BUN 7 Creatinine 0.64 Iron 14 L Troponin I < 0.015 Diagnostic Findings Chest x-ray and CT of the chest were unremarkable. Serial ECG showed sinus rhythm with PVCs, otherwise unremarkable. (1) Chest pain Chest pain type: unspecified Qualified Code(s): R07.9 - Chest pain, unspecified
[2019-03-13] MEDS ORDERED: IRON SUCROSE 200 MG in 0.9 % SODIUM CHLORIDE 100 ML IV ONE (12:00)
--- NOTE | 2019-03-13 13:47 | Hospitalist Progress Note ---
Date of Service March 13, 2019 Assessment & Plan (1) GI bleed: Possible melenic stools approx. 1 week ago (Friday & Friday). Has history of GI bleed in [place] (home) with hemoglobin down to 5. Has history of gastric sleeve in 09/2017. - Protonix IV BID - GI consult - Trend hgb - Given IV iron x 1 on 03/13 for ferritin of 3 - Obtain medical records from [facility] in [place] (2) Chest pain: Stabbing chest pain in the chest. - EKGs and troponins all negative - Seen by cardiology who feel this is non- cardiac chest pain. - Continue home beta-denia, calcium channel denia, and Imdur - Hold home ASA for now given concern for GI bleed (3) History of atrial fibrillation: She is currently in sinus rhythm. - Hold apixaban for now - Per cardiology, could consider holding indefinitely if she remains in sinus - Continue diltiazem and metoprolol (4) History of CHF (congestive heart failure): Per patient, has cardiomyopathy, but clean coronary cath in 2018. Unclear if it is tachycardia-related or something else. - She appears euvolemic currently without the need for diuretics. - Low-salt diet (5) Anemia: Reports having several episodes of anemia to the point of needing transfusions in 2018 & 2019. Per patient, has weekly home iron infusions arranged in [place]. - Iron studies on 03/13 showed clear iron deficiency - Plan as above (6) History of CVA (cerebrovascular accident): Per patient, has had 2 prior CVAs. She was told one was due to her afib, but she is unsure on the other. - Holding ASA for her possible GI bleed - Depending on the etiology of her CVAs she may not need ASA at all - Continue statin - Obtaining records as able from [place] (7) Depression: No depression at present. - Continue home SSRI, bupropion, and mirtazapine (8) Hypothyroidism: Last TSH is unknown. No signs/symptoms of hypo-/hyperthyroidism. - Continue home Synthroid 137 mcg - Get AM TSH (9) DVT prophylaxis: SCDs - Low DVT risk per admission calculator Subjective Chest pain has stopped, but she now has some numbness/tingling in her left neck. Also has some sparkling vision changes. No headache. Review of Systems Review of Systems: All systems reviewed & are unremarkable except as noted in HPI & below Physical Exam Constitutional: WD/WN, vitals as above Eyes: EOM intact bilaterally; no conjunctival abnormality ENMT: external ear and nose normal, oropharynx normal Neck: trachea midline, no thyromegaly normal visual inspection Respiratory: normal respiratory effort, lungs clear to auscultation no respiratory distress Cardiovascular: RRR, no murmur, no edema Gastrointestinal (Abdomen): Inspection/Auscultation: abdomen normal to inspection; abdomen not distended Musculoskeletal: no cyanosis or clubbing, extremities motor strength 5/5 Skin: no rashes, warm and dry Neurologic: CN's II-XI intact bilaterally, moves all extremities and awake Motor/Sensory: no tremor and normal movement Cranial Nerves: PERRL, tongue midline and able to rotate head bilaterally Psychiatric: Orientation: alert, oriented to person and cooperative Results & Data Vital Signs (Past 12 Hours) Vital Signs Temp Pulse Pulse Resp BP Pulse Ox 03/13/19 11:43 36.6 C 59 L 15 96/59 L 100 03/13/19 08:00 63 03/13/19 07:08 36.6 C 66 19 103/54 L 100 03/13/19 02:51 36.4 C L 68 16 92/45 L 98 PG Care Time/CCT Total # of Minutes Spent Total Time Spent with Patient: Total time spent is greater than 50% in coordination of care (as documented) at patient's floor/unit and/or counseling patient: (1) Chest pain Chest pain type: unspecified Qualified Code(s): R07.9 - Chest pain, unspecified
[2019-03-13 22:43] LABS: Appearance Urine Cloudy (Clear); Bacteria Urine Automated 1+ (Negative); Bilirubin Urine Negative (Negative); Blood Urine Negative (Negative); Color Urine Yellow; Epithelial Cell Urine Auto >30 /lpf (0-5); Glucose Urine UA Negative (Negative); Ketones Urine Negative (Negative); Leukocyte Esterase Urine Negative (Negative); Nitrite Urine Negative (Negative); Protein Urine Negative (Negative); RBC Urine Automated 0-4 /hpf (0-4); Specific Gravity Urine 1.011 (1.000-1.030); Urobilinogen Urine Negative (Negative); pH Urine 5.5 (4.5-7.5)
[2019-03-13] MEDS ORDERED: OXYCODONE HCL IR 5 MG TAB (IMMEDIATE RELEASE) PO PRN (23:44)
[2019-03-14] MEDS: MIRTAZAPINE SOLTAB 15 MG PO SCH (00:21)
[2019-03-14] MEDS: MoRPHine SULFATE 4 MG/ML 1 ML CARP\\VIAL IV PRN ×3 (00:21→12:41)
[2019-03-14] MEDS: LEVOTHYROXINE SODIUM 137 MCG TABLET PO SCH (06:21)
[2019-03-14 06:53] LABS: Hematocrit (blood only) 29.2 % (37-47); Hemoglobin 8.2 g/dL (12.0-16.0); Mean Corpuscular Hgb Conc 28.1 g/dL (32-36); Mean Corpuscular Volume 67.6 fL (80-100); Platelet Count 226 K/uL (130-400); RDW Coefficient of Variation 20.3 % (11.5-14.5); RDW Standard Deviation 50.1 fL (36.4-46.3); Red Blood Count 4.32 M/uL (4.2-5.4); White Blood Count 8.77 K/uL (4.8-10.8)
--- NOTE | 2019-03-14 07:49 | Cardiology Progress Note ---
Date of Service March 14, 2019 Assessment & Plan (1) Chest pain: Given the initial severity of her chest pain with negative ECG and enzymes, still suspect esophageal or gastric etiology rather than cardiac ischemia. Since she had negative catheterization 1 year ago and there is no evidence of ongoing myocardial ischemia, utility of stress testing would be low. Suspect she response to nitrates due to esophageal spasm, reasonable to continue these if they are therapeutic. No further ischemic workup planned in the absence of more specific evidence of myocardial ischemia. (2) History of atrial fibrillation: She is currently in sinus rhythm and monitored. Since there is a concern about GI bleeding, agree with temporarily stopping her aspirin and apixaban. Possibly, she could be discharged off the apixaban with instructions to restart if she suspects atrial fibrillation based on daily monitoring of her heart rate and rhythm via a phone bernard (instructed her use of Instant Heart Rate by [employer] on her [employer] phone). Whether to restart aspirin upon discharge is less clear, would be helpful to have records to see if her prior CVA was felt to be due to thromboembolic phenomenon, in which case the aspirin would not be necessary. (3) History of CHF (congestive heart failure): She appears euvolemic currently without the need for diuretics. Low-salt diet, obtain further records. No specific intervention necessary. P.r.n. diuretic if any evidence of volume overload. (4) Anemia: Workup per primary team, suspicious for GI bleeding given iron deficiency anemia. As noted, anti-platelet and antithrombotic agents should be held in hospital, decision on restarting on discharge will depend upon GI workup. Since she has required transfusions in the past, the issue of long-term anticoagulation should be addressed by her primary care team in [place]. However, with heart rate monitoring, perhaps she could forego anticoagulation in the short term, until she returns to [place]. No active cardiac issues (her episodic chest pain is felt to be noncardiac). Will sign off. Please contact Cardiology team tomorrow if she has new or concerning cardiac issues (such as recurrent atrial fibrillation, heart failure, or evidence of ischemia). Thank you for this consultation. Subjective 49-year-old woman visiting from [place] who was admitted 03/04/2019 with chest pain, had no ischemic changes on ECG and negative serial troponins, and gives a history of probable melena/hematochezia with hemoglobin today of 8.3. Overnight she noted further episodes of chest pain radiating to left jaw, these lasted a few minutes only with no associated symptoms. She also developed right lower quadrant pain which he states is similar to pain she had with diverticulitis in the past. Had 1 bowel movement which apparently was not captured/tested. No nausea or vomiting. No dyspnea. No palpitations. Her rh ythm remains sinus with frequent but non complex ventricular ectopy overnight. At the time of my evaluation this morning, the patient was comfortable in noted no chest discomfort, dyspnea, or lightheadedness. Her only complaint was right lower quadrant discomfort which was fairly mild. Physical Exam Physical Exam: No distress. Skin: No unusual lesions or ecchymosis. HEENT: Unremarkable. Neck: Jugular venous pulse at the clavicle at 90, no carotid bruits. Lungs: Clear and equal breath sounds bilaterally. No wheezing or crackles. Cardiac: Regular rhythm with sporadic ectopy, normal S1 and S2. 2/6 apical holosystolic murmur radiating to the axilla, no diastolic murmur or gallop. Abdomen: Benign. Extremities: Nontender without edema. Intact peripheral pulses. Neurologic: Normal affect, nonfocal Results & Data Vital Signs (Past 12 Hours) Vital Signs Temp Pulse Resp BP Pulse Ox 03/14/19 06:46 98.4 F 58 L 18 144/73 H 99 03/14/19 03:52 97.9 F 77 18 126/55 L 97 03/13/19 23:22 97.9 F 58 L 18 145/68 H 99 Laboratory Results 03/13/19 03/14/19 09:08 05:47 Hgb 8.2 L Iron 14 L (1) Chest pain Chest pain type: unspecified Qualified Code(s): R07.9 - Chest pain, uns pecified
[2019-03-14] MEDS: dilTIAZem HCL 120 MG CAPCR PO SCH (10:34)
[2019-03-14] MEDS: ESCITALOPRAM OXALATE 20 MG TAB PO SCH (10:34)
[2019-03-14] MEDS: BusPIRone 15 MG TAB PO SCH (10:34)
[2019-03-14] MEDS: PANTOprazole 40 MG TAB PO SCH (10:34)
[2019-03-14] MEDS: METOPROLOL TARTRATE 25 MG TAB PO SCH (10:34)
[2019-03-14] MEDS: ISOSORBIDE MONO EXTENDED REL 30 MG TABCR PO SCH (10:34)
[2019-03-14] MEDS ORDERED: IRON SUCROSE 200 MG in 0.9 % SODIUM CHLORIDE 100 ML IV ONE (12:00)
[2019-03-14] MEDS ORDERED: FLUCONAZOLE 100 MG TAB PO ONE (12:18)
--- NOTE | 2019-03-14 12:37 | Gastrointestinal Consultation ---
Date of Consultation March 14, 2019 Assessment & Plan (1) GI bleed: 49 yo female with significant cardiac/vascular history of chronic anticoagulation and known prior history of iron deficiency anemia admitted with chest pain. Noted to have had a drop from her baseline hgb and report of 2 days of melena a few days prior. No further s/s of on-going blood loss. Since she is stable, it is reasonable to allow her to be discharged today on BID oral PPI and to have close follow up with her PCP when she arrive back to her home state. Please call with questions./ D/w primary service (2) Anemia: History of Present Illness Reason for Consultation: melena Requesting Physician: Dr. Menjivar Attending Physician: Richie Menjivar MD History of Present Illness 49 yo female with a history of AF, CVA, CHF, lupus who underwent gastric sleeve 1.5 years ago and is visiting from [place]. She presented to the [facility] with complaints of chest pain. Cardiac work up completed. She does report 2 days of melena 2 days prior to presentation. Hgb per patient runs in the 11-12 range and found to have a hgb of 8.3 on admission here. No abd pain. No nausea or vomiting. No melena in the last 24 hours. On ASa and anticoagulants for h/o AF. Denies any OTC NSAIDs. Has had UGI bleeding problems in the past per patient. On weekly iron injections. Has been stable since admission. Hgb is stable. BUN was never elevated. Allergies Allergy/AdvReac Type Severity Reaction Status Date / Time Penicillins Allergy Severe THROAT Verified 03/12/19 18:05 CLOSES, HIVES adhesive Allergy Intermediate SKIN Verified 03/12/19 18:05 BLISTERS Home Medications Home Medications Medication Instructions Recorded Confirmed Type apixaban [Eliquis] 5 mg PO BID 03/12/19 03/12/19 History aspirin [Aspir-81] 81 mg PO QAM 03/12/19 03/12/19 History bupropion HCl 75 mg PO BID 03/12/19 03/12/19 History buspirone 15 mg PO BID 03/12/19 03/12/19 History diltiazem HCl [Cardizem] 120 mg PO BID 03/12/19 03/12/19 History escitalopram oxalate [Lexapro] 20 mg PO QAM 03/12/19 03/12/19 History hydromorphone [Dilaudid] 4 mg PO DIRECTED PRN 03/12/19 03/12/19 History isosorbide mononitrate 30 mg PO BID 03/12/19 03/12/19 History levothyroxine 137 mcg PO DAILYBB 03/12/19 03/12/19 History metoprolol tartrate 25 mg PO BID 03/12/19 03/12/19 History mirtazapine 45 mg PO HS 03/12/19 03/12/19 History nitroglycerin [Nitrostat] 0.4 mg SUBLINGUAL DIRECTED PRN 03/12/19 03/12/19 History pantoprazole 40 mg PO BID 03/12/19 03/12/19 History rosuvastatin [Crestor] 20 mg PO HS 03/12/19 03/12/19 History Patient History Medical History CHF (congestive heart failure) CVA (cerebral vascular accident) Lupus Social History 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 Beliefs That Will Affect Care: None Current Living Situation: Alone Other Information That Helps Us Care for You: No Feels Safe at Home: Yes Safety Concerns: Feels Safe At This Time Smoking Status: Former smoker Do You Dip or Chew Tobacco: No Second Hand Exposure: No Tobacco Cessation Education Requested by Patient: No Hx Alcohol Use: No Hx Substance Use: No Review of Systems Review of Systems: 12 systems reviewed and negative except as noted Physical Exam Constitutional: WD/WN, vitals as above Eyes: PERRL, conjunctivae normal, anicteric sclerae Neck: trachea midline, no thyromegaly Respiratory: normal respiratory effort, lungs clear to auscultation Cardiovascular: Rate/Rhythm: regular rate Gastrointestinal (Abdomen): normal bowel sounds, soft, nontender, no hepatosplenomegaly Musculoskeletal: no cyanosis or clubbing, extremities motor strength 5/5 Neurologic: CN's II-XI intact bilaterally Results & Data Vital Signs (Past 12 Hours) Vital Signs Temp Pulse Pulse Pulse Resp BP BP 03/14/19 10:54 36.5 C 60 18 95/48 L 03/14/19 08:00 74 03/14/19 06:46 36.9 C 58 L 18 144/73 H 03/14/19 03:52 36.6 C 77 18 126/55 L Pulse Ox 03/14/19 10:54 97 03/14/19 08:00 03/14/19 06:46 99 03/14/19 03:52 97
[2019-03-14] MEDS ORDERED: OXYCODONE HCL IR 5 MG TAB (IMMEDIATE RELEASE) PO STA (14:34)
--- NOTE | 2019-03-14 15:29 | Discharge Summary ---
Date of Service March 14, 2019 Admission HPI Per Admitting Provider 49-year-old female arrives via EMS for chest pain. She states around 5 PM while sitting at the [employer] station she had the acute onset of nausea, vomiting x2, and a central "clenching" chest pain that radiated towards her jaw and into her upper back. She called 911 and gave herself 3 nitroglycerin which improved her pain from a 10/10 to a 7/10. By EMS, she was given aspirin and on arrival was given further nitroglycerin and morphine. Only noted prodromal symptom was a feeling of decreased energy over the past 3 days. At present during this interview, patient says that it feels like her chest pain is beginning to return. She says the last time this happened was about 7 months ago and at that time Nitropaste seem to help more. She notes a history of angina for the past approximately 1.5 years and says that this pain feels similar to that. She is followed by cardiology back home in [place]. She presently feels what appears to be PVCs on the monitor. She says she has some mild shortness of breath initially but denies any at present. She says she is quite hungry and is enjoying the sandwich she got in the ED. No longer any nausea. As background, patient states she has a history of angina as described above. No known source. Says she underwent a chemical stress test and catheterization in the summer 2017 and was noted to have minimal blockage. She also says she has a history of congestive heart failure, has had echocardiograms, but is unsure of the results. Furthermore, notes history of A. fib well controlled on medication as well as on apixaban. Status post CVA in 2013 without noted deficits but then a second CVA in 2018 with some left-sided weakness and mild aphasia, since greatly resolved. Diagnosed with lupus last year. Concurrent anxiety and depression. Hypothyroidism. Says she underwent a gastric sleeve surgery in September 2017, has since had 120 pound weight loss, and is off of insulin/metformin. She notes a history of anemia, no known source, but gives herself shots of iron weekly (last dose 24Jun). She is presently in [place] visiting her at [facility] and was on track to take a bus to [place], then return to [place] this coming . Principal Diagnosis Iron deficiency anemia with possible GI bleed Discharge Exam Constitutional WD/WN, vitals as above Eyes EOM intact bilaterally; no conjunctival abnormality ENMT external ear and nose normal, oropharynx normal Neck trachea midline, no thyromegaly normal visual inspection Respiratory normal respiratory effort, lungs clear to auscultation no respiratory distress Cardiovascular RRR, no murmur, no edema Gastrointestinal (Abdomen) Inspection/Auscultation: abdomen normal to inspection; abdomen not distended Musculoskeletal no cyanosis or clubbing, extremities motor strength 5/5 Skin no rashes, warm and dry Neurologic CN's II-XI intact bilaterally, moves all extremities and awake Motor/Sensory: no tremor and normal movement Cranial Nerves: PERRL, tongue midline and able to rotate head bilaterally Psychiatric Orientation: alert, oriented to person and cooperative Discharge Data Allergies Allergy/AdvReac Type Severity Reaction Status Date / Time Penicillins Allergy Severe THROAT Verified 03/12/19 18:05 CLOSES, HIVES adhesive Allergy Intermediate SKIN Verified 03/12/19 18:05 BLISTERS Consultations 03/12/19 20:02 ED Decision to Admit Stat 03/12/19 22:43 Consult Cardiology Routine 03/13/19 08:50 Consult Gastroenterology Routine Ordered Studies 03/12/19 17:51 CT angio chest dissec wo/w con Stat 03/13/19 08:58 US carotid doppler Routine Hospital Course (1) GI bleed: Possible melenic stools approx. 1 week ago (Friday & Wednesday 03/07-03/08). Has history of GI bleed in [place] with hemoglobin down to 5. Has history of gastric sleeve in 09/2017. - Hemoglobin stable ~8-9 during admission without any melena or hematochezia. - Iron studies showed profound iron deficiency anemia - Given IV iron twice - Has home IV iron per patient - Protonix PO BID - Seen by GI who felt that no inpatient EGD or colonoscopy was needed; can follow up with her GI in [place]. (2) Chest pain: Initial presenting symptom was stabbing chest pain in the chest. Per patient, had a clean cath <1 year ago. - EKGs and troponins all negative - Seen by cardiology who feel this is non- cardiac chest pain. Possibly esophageal spasm. By discharge, no longer with any chest pain. - Continue home beta-denia, calcium channel denia, and Imdur - Held home ASA for now given concern for GI bleed - Stopped on discharge. - Also told her to change Imdur to daily for better effect. That way she does not acclimate to nitro with BID dosing. (3) History of atrial fibrillation: She is currently in sinus rhythm. - Hold apixaban for now - Per cardiology, could consider holding indefinitely if she remains in sinus - Taught by cardiology how to use a phone bernard to determine when she is in afib. - Continued diltiazem and metoprolol (4) History of CHF (congestive heart failure): Per patient, has cardiomyopathy, but clean coronary cath in 2018. Unclear if it is tachycardia-related or something else. - She appears euvolemic currently without the need for diuretics. - Low-salt diet (5) Anemia: Reports having several episodes of anemia to the point of needing transfusions in 2018 & 2019. Per patient, has weekly home iron infusions arranged in [place]. - Iron studies on 03/13 showed clear iron deficiency - 2 doses of IV iron while inpatient. (6) History of CVA (cerebrovascular accident): Per patient, has had 2 prior CVAs. She was told one was due to her afib, but she is unsure on the other. - Holding ASA for her possible GI bleed - Depending on the etiology of her CVAs she may not need ASA at all - Continue statin - Told to hold ASA until seen by her PCP or GI doctor. (7) Depression: No depression at present. - Continue home SSRI, bupropion, and mirtazapine (8) Hypothyroidism: TSH was 2.7. No signs/symptoms of hypo-/hyperthyroidism. - Continue home Synthroid 137 mcg (9) DVT prophylaxis: SCDs - Low DVT risk per admission calculator Total Time Total Time Spent Total Time Spent (In Minutes): 35 Total Time Includes: Examination of the Patient and Communication With Other Providers Discharge Plan Discharge Items Patient Disposition: Home - Self-Care Reason For Visit: CHEST PAIN Discharge Diagnosis: Chest pain; possible GI bleed Discharge Goals: Decrease discomfort and Diagnostic testing Activity: Resume your previous activity Non-emergency contact: Primary Care Provider Call non-emergency contact if: your symptoms worsen Follow-up/Referrals: PCP,NO [Primary Care Provider] - Diet: Heart Healthy and Bariatric Addtl Provider Instructions: Please hold your aspirin and Eliquis until you see your PCP or clinical systems analyst. You were not in atrial fibrillation while in the hospital. Please take your Imdur one time per day instead of twice. It may help reduce your chest pain more than taking it 2 times per day. Prescriptions: Continued levothyroxine 137 mcg Tablet 137 mcg PO DAILYBB RF: 0 diltiazem HCl [Cardizem] 120 mg Tablet 120 mg PO BID RF: 0 pantoprazole 40 mg Tablet,Delayed Release (Dr/Ec) 40 mg PO BID RF: 0 bupropion HCl 75 mg Tablet 75 mg PO BID RF: 0 nitroglycerin [Nitrostat] 0.4 mg Tablet, Sublingual 0.4 mg sublingual DIRECTED PRN (Reason: Chest Pain) RF: 0 mirtazapine 45 mg Tablet 45 mg PO HS RF: 0 hydromorphone [Dilaudid] 4 mg Tablet 4 mg PO DIRECTED PRN (Reason: LUPUS FLARE UPS) RF: 0 buspirone 15 mg Tablet 15 mg PO BID RF: 0 escitalopram oxalate [Lexapro] 20 mg Tablet 20 mg PO QAM RF: 0 rosuvastatin [Crestor] 20 mg Tablet 20 mg PO HS RF: 0 metoprolol tartrate 25 mg Tablet 25 mg PO BID RF: 0 Changed isosorbide mononitrate 30 mg Tablet Extended Release 24 Hr 30 mg PO DAILY Qty: 0 RF: 0 Discontinued aspirin [Aspir-81] 81 mg Tablet,Delayed Release (Dr/Ec) 81 mg PO QAM RF: 0 Eliquis 5 mg Tablet 5 mg PO BID RF: 0 Stand-Alone Forms: Call Back Authorization, Counts Include [facility] Discharge Orders: Discharge Order (Routine); Ordered 03/14/19 Ordered By: Richie Menjivar Admission Data Admit Date/Time: 03/12/19 22:08 Attending Provider: Richie Menjivar Admit Provider: Sonny Maurice Primary Care Provider: PCP,NO Other Providers: Tung Jimenez ; Richie Menjivar ; Stephany Gray Service: Telemetry Other Interventions: Discharge Summary Assessment (RN) Last Done: 03/14/19 14:39 DC Date/Time DO NOT enter until pt leaves facility: 03/14/19 15:15
== END 2019-03-14 15:15 | disposition home or self-care (01) ==
LOC: ED 17:37 → 2E 17:37 → SUATTDRO 22:08 → 2E 22:21